=== PATIENT | female | born 1950 | race Two or more races ===

== ENCOUNTER → 2019-10-27 06:00 | Outpatient (CLI) | payer OTHER ==
[~2019-10-27] VITALS: Ht 160 cm; Wt 83.5 kg
[~2019-10-27 06:00] MED LIST: ACCUPRIL10 MG PO; LEVO-T50 MCG PO; ZOCOR20 MG PO
== END | disposition home or self-care (01) ==
LOC: LAB 06:00 → EDSTATUS 11-03 07:00 → SURH 11-03 07:00
DX: M17.11 Unilateral primary osteoarthritis, right knee (principal); D64.89 Other specified anemias; D68.8 Other specified coagulation defects; Z01.811 Encounter for preprocedural respiratory examination; I11.9 Hypertensive heart disease without heart failure

== ENCOUNTER 2019-10-31 09:15 | Outpatient (CLI) | payer OTHER | END 2019-10-31 09:20 | disposition home or self-care (01) | LOC: LAB 09:15 | DX: N39.0 Urinary tract infection, site not specified (principal) ==

== ENCOUNTER 2019-11-26 08:45 | Inpatient (IN) | payer OTHER ==
[~2019-11-26] VITALS: Ht 160 cm; Wt 84.4 kg
[2019-12-23] MEDS ORDERED: LEVO-T75 MCG PO (09:34)
[2019-12-29] MEDS ORDERED: QUINAPRIL HCL20 MG PO (16:12)
[2019-12-31] MEDS ORDERED: INTEGRA PLUS C1 EACH PO (06:10)
[2019-12-31] MEDS ORDERED: XARELTO10 MG PO (06:10)
[2019-12-31] MEDS ORDERED: OXYC1TAB9 PO (06:10)
== END 2019-12-31 13:08 | DRG 470 ==
LOC: O/R 12-01 08:45 → SURG 12-29 05:35 → O/R 12-29 05:35 → SURG 12-29 17:15
PROVIDERS: ADMIT Orthopaedic Surgery Sports Medicine
PROC: 0SRC0J9 Replacement of Right Knee Joint with Synthetic Substitute, Cemented, Open Approach (ICD-10-PCS; principal; 2019-12-29 10:45)
DX: M17.11 Unilateral primary osteoarthritis, right knee (principal); I10 Essential (primary) hypertension; E03.9 Hypothyroidism, unspecified; Z79.82 Long term (current) use of aspirin

== ENCOUNTER 2020-07-12 07:45 | Inpatient (IN) | payer OTHER ==
[~2020-07-12] VITALS: Ht 160 cm; Wt 77.1 kg
[~2020-07-12 07:45] MED LIST changes: +INTEGRA PLUS C1 EACH PO; +LEVO-T75 MCG PO; +OXYC1TAB9 PO; +QUINAPRIL HCL20 MG PO; +XARELTO10 MG PO
[2020-07-12] MEDS ORDERED: ELIQUIS5 MG PO (13:28)
[2020-07-21] MEDS ORDERED: BACTRIM 400-801 EACH PO (08:14)
[2020-07-21] MEDS ORDERED: INTEGRA PLUS C1 EACH PO (08:14)
[2020-07-21] MEDS ORDERED: ELIQUIS2.5 MG PO (08:14)
[2020-07-21] MEDS ORDERED: OXYC1TAB9 PO (08:14)
== END 2020-07-21 14:41 | DRG 468 ==
LOC: ADM 07:45 → O/R 07-19 07:45 → SURH 07-19 07:45 → CIR.AMB 07-19 07:45 → EDSTATUS 07-19 07:45 → SURH 07-19 10:45 → SURG 07-20 11:15 → O/R 07-20 14:23 → PED 07-20 16:12
PROVIDERS: ADMIT Orthopaedic Surgery Sports Medicine; ATTEND Orthopaedic Surgery Sports Medicine
PROC: 0SPC0JZ Removal of Synthetic Substitute from Right Knee Joint, Open Approach (ICD-10-PCS; 2020-07-19)
PROC: 0SRC0J9 Replacement of Right Knee Joint with Synthetic Substitute, Cemented, Open Approach (ICD-10-PCS; principal; 2020-07-19 10:45)
DX: T84.022A Instability of internal right knee prosthesis, initial encounter (principal); I10 Essential (primary) hypertension; E03.9 Hypothyroidism, unspecified